=== PATIENT | female | born 1980 | race Caucasian/White ===

== ENCOUNTER 2020-04-01 05:24 | Emergency (ER) | payer OTHER, SELFPAY ==
[2020-04-01 05:27] VITALS: BP 131/92; PULSE 97; RESP 16; TEMP 36.7; O2SAT 97; BMI 24.1
--- NOTE | 2020-04-01 06:19 | [facility].EDGENADL ---
ED Disposition Clinical Impression: Dental abscess, Toothache, Dental caries Disposition: Home, Self-Care Condition on Discharge: Good Instructions: DI for Tooth Decay, DI for Dental Pain Additional Instructions: You have been evaluated for dental pain, dental abscess. Please take clindamycin as prescribed. Take Tylenol and ibuprofen for pain. Take [place] for extreme pain. Follow-up with your oral surgeon as scheduled. If your pain becomes worse or you have any symptoms of fever, chills, nausea, vomiting, please return to the emergency department. It would also be reasonable to try to be seen at a / dental clinic for management of dental caries or dental extractions. Prescriptions: clindamycin HCL [Clindamycin HCl] 300 mg PO Q8 5 Days #15 cap Prescription Printed Hydrocodone/Acetaminophen [Hydrocodone-Acetamin 5-325 mg] 1 each PO Q6 PRN 2 Days #8 tab PRN Reason: Moderate To Severe Pain Prescription Printed Referrals: PCP,No [Primary Care Provider] - Time of Disposition: 06:24 - Critical Care Critical Care Time: No Attestation: On 04/01/20, the high probability of a clinically significant, sudden or life threatening deterioration of the following system(s) required my full and direct attention, intervention and personal management. The time I documented below is in addition to time spent performing reported procedures but includes the following listed in this critical care notation. Medical Decision Making - Medical Records Medical records reviewed: Yes: I reviewed the patient's medical records. - Efrain Inquiry Pt receiving controlled substance: Yes Efrain was queried for this patient: No Reason not queried -: Efrain login issues Risks and benefits of using a controlled substance: were discussed with pt by me Vital Signs: 04/01/20 05:27 Temperature 98.1 F Temperature Source Oral Pulse Rate [Left Radial] 97 H Respiratory Rate 16 Blood Pressure [Right Arm] 131/92 H Blood Pressure Mean [Right Arm] 105 Blood Pressure Source [Right Arm] Automatic Cuff Blood Pressure Position [Right Arm] Sitting 02 Sat by Pulse Oximetry 97 Oxygen Delivery Method Room Air Orders (Tests/Meds): ED MEDICATIONS Discontinued Medications Generic Name Dose Route Start Last Admin Trade Name Freq PRN Reason Stop Dose Admin Lidocaine HCl 5 ml 04/01/20 05:48 04/01/20 05:59 Lidocaine 1% 10ml Mdv IJ 04/01/20 05:49 5 ml ONCE ONE Administration Oxycodone HCl 5 mg 04/01/20 05:51 04/01/20 06:08 Oxycodone 5mg Immediate Release Tablet PO 04/01/20 05:52 5 mg ONCE ONE Administration Medical Decision Narrative: In summary this is a 39-year-old female presenting to the emergency department with dental pain and abscess. Patient is clinically stable on arrival. Vital signs within normal limits. Physical exam is most consistent with dental carry. Fluctuance at the lower jaw margin is concerning for cellulitis or abscess. No clear area amenable to drainage. Swelling is localized, may extend into the buccal space, but no further. No swelling in the posterior oropharynx. No swelling on the lateral neck. Patient given 5 mg oxycodone. Dental block performed. Procedure well-tolerated. Patient had near immediate pain relief. Her prescription for clindamycin is 150 mg tablet 3 times daily. I recommended 300 mg 3 times daily. Provided additional medication. Also gave short prescription of 2 days of [place]. Instructed her to follow-up with her oral surgeon as scheduled. Given references for emergency dental clinics if she chooses to have further work done before April. Patient agreeable with plan for discharge. General Adult HPI - General Chief complaint: Dental/Oral Stated complaint: Pain in Rt Jaw;abcess Time Seen by Provider: 04/01/20 06:05 Mode of Arrival: Ambulatory Limitations: No Limitations Description of Symptoms (Recalled from ER Triage Doc. by RN): pt complains of a tooth abcess on the
[2020-04-01 06:29] VITALS: BP 135/69; PULSE 86; RESP 14; TEMP 37.1; O2SAT 98
== END 2020-04-01 06:32 | disposition home or self-care (01) ==
PROVIDERS: Emergency Provider Emergency Medicine
DX: K04.7 Periapical abscess without sinus (principal); K02.9 Dental caries, unspecified; Z88.0 Allergy status to penicillin
CPT/HCPCS: 99281